=== PATIENT | male | born 1985 | race Caucasian/White ===

== ENCOUNTER 2017-08-28 07:54 | Emergency (ER) | payer OTHER ==
[~2017-08-28] VITALS: Ht 177.8 cm; Wt 78.0 kg
[2017-08-28 08:02] VITALS: BP 131/85; PULSE 81; RESP 17; TEMP 97.8; O2SAT 98
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
[2017-08-28 08:15] VITALS: BP 120/77; TEMP 97.8
[2017-08-28] MEDS ORDERED: IBUPROFEN 600 MG TAB PO ONE (08:15)
== END 2017-08-28 08:15 | disposition home or self-care (01) ==
LOC: NEPC 07:54
DX: S70.02XA Contusion of left hip, initial encounter (principal); S60.512A Abrasion of left hand, initial encounter; S80.02XA Contusion of left knee, initial encounter; V43.52XA Car driver injured in collision with other type car in traffic accident, initial encounter
CPT/HCPCS: 99283